=== PATIENT | female | born 1985 | race Caucasian/White ===

== ENCOUNTER 2022-05-06 06:15 | Inpatient (IN) | payer BC, SELFPAY ==
[2022-05-06] VITALS (26 sets, daily range): BP systolic 116–171; BP diastolic 68–109; PULSE 50–106; RESP 16–18; TEMP 36.4–36.9; O2SAT 93–98; BMI 26.4
[2022-05-06 07:51] LABS: SARS PCR* Negative SARS-CoV-2 (Negative)
--- NOTE | 2022-05-06 08:15 | P.OBHP_ITS ---
OB - H&P: HPI Labor/Induction History of Present Illness Date Seen: 05/06/22 Chief Complaint: The patient is a 36 year old 4 para 2011 at 39 weeks gestation by LMP and confirmed with 1st trimester US, who presents for IOL for AMA and + SS-A antibodies with Sjogrens. Patient has had an uncomplicated . She has been on hydroxychloroquine and ASA for her sjogrens and has followed with MPP and peds cardiology for regular echo and growth ultrasounds, all of which has been reassuring. Chief complaint: maternity : 4 Para: 2 Indications for induction: other (+SS-a gayle/sjogrens) History of Present Dating criteria: based on LMP care: good care Ultrasounds: other (normal 20 week US and serial growth US) Narrative: Sjogren's Labs Blood type: O (+) positive RPR/VDLR: nonreactive GBS status: negative HBsAG: negative Review of Systems Status of ROS: Reports: 6 or more systems reviewed and unremarkable except as noted in History and below Meds Home Medications and Allergies Home Medication Comments: Hydroxychloroquine 100 mg/day Lexapro 10 mg/day ASA 81 mg/day OB - H&P: Exam Physical Exam: Vital signs: Pulse BP Pulse Ox 102 H 118/79 96 05/06/22 06:39 05/06/22 06:39 05/06/22 06:40 Constitutional: Constitutional: no acute distress Routine HEENT Exam: Head: Present atraumatic Eye: Present EOMI and normal appearance ENT: Present mucous membranes moist Routine Neck Exam: Neck: Present full ROM Routine Respiratory Exam: Respiratory: Present CTA bilaterally Routine Cardiovascular Exam: Cardiovascular: RRR Detailed Labor and Delivery Exam: Patient Gravid: Yes Dilation (cm): 4 Effacement (%): 60 Cervix position: mid Consistency: soft Cervical ripeness score: 8 Contraction frequency (min): 8 Contraction intensity: Mild Fetus (Single): Station: -2 Amniotic Membrane Status: AROM Amniotic Membrane Fluid Description: Meconium Stained and Yellow Heart Rate Baseline: 155 Detention Variability: Moderate (6-25) Routine Neurological Exam: Present alert, oriented X3 and CN II-XII intact Routine Psychiatric Exam: Present normal affect, normal thought process and cooperative OB - Problem Based A/P Additional Plan (1) Term : Status: Acute (2) SS-A antibody positive: Status: Acute (3) Lupus anticoagulant affecting in third trimester, antepartum: Status: Acute Plan Patient underwent AROM, will see if she goes into spontaneous labor. If not, will add IV pitocin. Delivery/Labor/Induction Plan Plan: induction Induction method: AROM
--- NOTE | 2022-05-06 13:43 | PM.OBPNL ---
Subjective Date Seen: 05/06/22 Narrative: Meg is a at 39 weeks induction for AMA and sjogrens +SS-A antibodies. She underwent AROM this morning with meconium stained fluid. Over the last 2.5 hours contractions have become a lot more uncomfortable. Objective Vital Signs: Last Vital Signs Temp 98.1 F 05/06/22 13:42 Pulse 82 05/06/22 08:51 Resp 16 05/06/22 10:16 BP 118/75 05/06/22 08:51 Pulse Ox 93 05/06/22 08:53 Pelvic Exam Dilation (cm): 6 Effacement (%): 80 Station: -1 Contractions Monitor mode: External Contraction Frequency: 3 Contraction pattern: Regular Contraction intensity: Strong/Firm Assessment Station: -2 Amniotic Membrane Status: AROM Status: Category ll Heart Rate Baseline: 155 Callisthenics Instructor Variability: Moderate (6-25) Monitor Decelerations: None Plan Plan: Continue expectant management. Anticipate NVD
[2022-05-06] MEDS: OXYTOCIN 10 UNIT/ML INJ IM (14:36)
[2022-05-06] MEDS: LIDOCAINE 1 % PF 30 ML INJECTION (14:44)
[2022-05-06] MEDS: miSOPROStoL 800 MCG/4 TABLET PR (14:51)
--- NOTE | 2022-05-06 15:17 | W.PM.VAGDEL1 ---
Procedure Procedure Done: Global Events: Meconium Stained Fluid, AMA and Other (Sjogren's + SS-A antibodies) Intrapartal Events: Labor Induction Delivery monitor: external FHT Route of delivery: Laceration description: Perineal - 2nd Degree Delivery repair: Vicryl Estimated blood loss (mL): 250 Anesthesia type: None Narrative: The patient is a 36 year-old admitted on 05/06/2022 at 39 Weeks, 0 Days gestation for IOL for AMA and sjogren's with + ss-A antibodies.? Cervical exam on admission was 4 cm/60 % effaced/-3 station with membranes intact in vertex presentation.? Contractions were absent.? heart rate demonstrated baseline 155 bpm with moderate variability, + accelerations, - decelerations; a category 1 tracing.? AROM occurred at 0806 with meconium stained fluid. ? Labor Analgesia:? none ? Pitocin:? 10 mU IM post delivery ? Labor onset:? ? Complete:? 1430 ? Pushing:? 1430 ? heart tones during second stage were category 2. ? At 1435 a viable female infant delivered in vertex OA presentation over intact perineum via spontaneous vaginal delivery.? was placed on maternal abdomen.? Cord was clamped and cut after a 30-60 second delay.? Nose and mouth were bulb suctioned.? weight pending.? 8 at 1 minute and 8 at 5 minutes.? Shoulder dystocia: no.? Nuchal cord: no. ? Placenta delivered spontaneously and complete at 1438 with a 3 vessel cord. After this, her uterus was intermittently bogy and 800 mg cytotec given MN. ? Mother and infant were stable after delivery. ? Lacerations:?2nd degree perineal , repaired with 3-0 vicryl suture. ? Blood loss: 230 mL. Blood loss measurement type: QBL ? Sponge and needles counts are correct. Gender: Female presentation: vertex Placental Delivery Description: Spontaneous Cord Description: 3 Vessels
[2022-05-06] MEDS: ESCITALOPRAM 10 MG TABLET PO (21:19)
[2022-05-07 01:08] VITALS: BP 123/83; PULSE 67; RESP 16; TEMP 36.6; O2SAT 97
[2022-05-07 04:45] VITALS: BP 115/80; PULSE 65; RESP 16; TEMP 36.4; O2SAT 97
[2022-05-07 06:20] LABS: Hemoglobin* 11.6 gm/dL (12.0-16.0)
[2022-05-07 09:00] VITALS: BP 120/81; PULSE 83; RESP 18; TEMP 36.6; O2SAT 96
--- NOTE | 2022-05-07 09:50 | P.DS_ITS ---
DS: Providers Provider Time Seen by Provider: 09:50 Date Seen: 05/07/22 Date of admission: 05/06/22 06:15 Primary care physician: Kecia Gupta MD Admitting Clinician: Kecia Gupta MD Attending Physician on discharge: Zeynep Garcia MD Date of Discharge: 05/07/22 DS: Diagnosis Discharge Diagnosis (1) Lupus anticoagulant affecting in third trimester, antepartum: Status: Acute (2) SS-A antibody positive: Status: Acute (3) Term : Status: Acute Exam Narrative: Exam Narrative: General appearance: Well-appearing adult female. Alert, oriented and appropriate. Sitting up in hospital bed. HEENT: EOMI, no conjunctival injection or discharge. MMM. Neck: Supple. CV: RRR, no rubs, murmurs or extra heart sounds. Pulm: CTAB, no wheezes, rales or rhonchi. Abdomen: Soft, non-tender. Fudus palpated at the umbilicus. MSK: Moving all extremities. Ext: Warm and well-perfused. No LE edema. Skin: No rashes appreciated over exposed skin. Neuro: Grossly normal strenth and sensation. No focal deficits. Psych: Normal affect. Const: Vital Signs, click to edit/add: Vital Signs - 24 hr 05/06/22 10:16 05/06/22 11:23 05/06/22 12:22 Temperature 97.9 F 98.5 F 97.8 F Pulse Rate Pulse Rate [Pulse Oximeter] Respiratory Rate 16 Blood Pressure Blood Pressure [Le ft Arm] Pulse Oximetry Oxygen Delivery Me thod 05/06/22 14:21 05/06/22 15:04 05/06/22 15:17 Temperature Pulse Rate 67 67 Pulse Rate [Pulse Oximeter] Respiratory Rate Blood Pressure 140/90 H 127/86 Blood Pressure [Le ft Arm] Pulse Oximetry 97 Oxygen Delivery Me thod 05/06/22 15:19 05/06/22 15:34 05/06/22 15:35 Temperature Pulse Rate 63 65 Pulse Rate [Pulse Oximeter] Respiratory Rate Blood Pressure 128/84 134/88 Blood Pressure [Le ft Arm] Pulse Oximetry 96 Oxygen Delivery Me thod 05/06/22 15:49 05/06/22 16:04 05/06/22 16:07 Temperature Pulse Rate 68 75 Pulse Rate [Pulse Oximeter] Respiratory Rate Blood Pressure 126/84 116/84 Blood Pressure [Le ft Arm] Pulse Oximetry 98 Oxygen Delivery Me thod 05/06/22 16:20 05/06/22 16:35 05/06/22 16:50 Temperature Pulse Rate 60 50 L 74 Pulse Rate [Pulse Oximeter] Respiratory Rate Blood Pressure 130/85 146/68 H 171/109 H Blood Pressure [Le ft Arm] Pulse Oximetry Oxygen Delivery Me thod 05/06/22 16:51 05/06/22 13:42 05/06/22 14:22 Temperature 98.1 F 97.6 F Pulse Rate 62 Pulse Rate [Pulse Oximeter] Respiratory Rate 18 Blood Pressure 129/76 140/90 H Blood Pressure [Le ft Arm] Pulse Oximetry Oxygen Delivery Me thod 05/06/22 15:19 05/06/22 15:34 05/06/22 15:49 Temperature 98.1 F 98.4 F Pulse Rate Pulse Rate [Pulse Oximeter] 67 62 72 Respiratory Rate 16 18 16 Blood Pressure Blood Pressure [Le ft Arm] 127/86 134/88 126/84 Pulse Oximetry Oxygen Delivery Me thod 05/06/22 16:04 05/06/22 21:16 05/07/22 01:08 Temperature 97.9 F 98.4 F 97.9 F Pulse Rate Pulse Rate [Pulse Oximeter] 67 67 Respiratory Rate 16 16 16 Blood Pressure Blood Pressure [Le ft Arm] 116/84 126/82 123/83 Pulse Oximetry 95 97 Oxygen Delivery Me thod Room Air Room Air 05/07/22 04:45 Temperature 97.6 F Pulse Rate Pulse Rate [Pulse Oximeter] 65 Respiratory Rate 16 Blood Pressure Blood Pressure [Le ft Arm] 115/80 Pulse Oximetry 97 Oxygen Delivery Me thod Room Air OB - DS: Summary Hospital Course Hospital Course: The patient is a 36 year old G 4 P 2010 at 39 weeks gestation that was admitted to the Center on 05/06/22 for IOL for AMA, sjogren's and +SSA gayle. She had an uncomplicated vaginal delivery. She delivered a viable female . She is bottle feeding. the patient has done well. Peripartum Data Infant delivery method: Vaginal Laceration description: Perineal - 2nd Degree complications: none [place] Infant Gender: Female Discharge Plan: Home Status at Discharge Functional status at discharge: independent ambulation Overall status at discharge: patient is back to baseline Time Spent with Patient Time attestation: Total time spent providing and/or coordinating discharge services: Discharge Plan Discharge Disposition: Home, Self-Care Date of Admission: 05/06/22 06:15 Attending Provider on Discharge: Zeynep Garcia Primary Care Provider: Kecia Gupta Condition: Stable Anticipated Discharge Date/Time: 05/07/22 04:00 Discharge Medications: New calcium carbonate 200 mg calcium (500 mg) Tablet,Chewable 1,000 - 2,000 mg PO Q2H PRN30 Days Qty: 30 0RF docusate sodium 100 mg Capsule 100 mg PO DAILY 30 Days Qty: 30 0RF ibuprofen 600 mg Tablet 600 mg PO Q6H PRN30 Days Qty: 30 0RF Continued hydroxychloroquine 200 mg tablet 200 mg PO DAILY escitalopram oxalate 10 mg tablet 10 mg PO DAILY Discharge Orders: Discharge Order (Routine); Ordered 05/07/22 Ordered By: Zeynep Garcia Patient Education: OB Vaginal/Bottle Feeding Activity Level: Activity as Tolerated Discharge Diet: Regular Follow Up Appointments: Kecia Gupta MD [Primary Care Provider] - (6 week post visit) [facility]: [facility] Info Instructions
[2022-05-07 13:00] VITALS: BP 127/85; PULSE 66; RESP 18; TEMP 36.7; O2SAT 96
== END 2022-05-07 16:05 | disposition home or self-care (01) | DRG 560 ==
PROVIDERS: Admitting Provider Family Medicine; PCP Family Medicine; Visit Provider Family Medicine
DX: O70.1 Second degree perineal laceration during delivery (principal); M35.00 Sjogren syndrome, unspecified; Z3A.39 39 weeks gestation of pregnancy; Z37.0 Single live birth; R76.0 Raised antibody titer; O99.12 Other diseases of the blood and blood-forming organs and certain disorders involving the immune mechanism complicating childbirth
CPT/HCPCS: 36415; 85018; 85025; 86850; 86900; 86901; 87635; A9270; J2001; J2590